=== PATIENT | male | born 1955 | race Caucasian/White ===

== ENCOUNTER → 2018-10-05 | Outpatient (CLI) | payer BC ==
--- NOTE | 2018-10-05 17:24 | CT ---
EXAM DESCRIPTION: Head w/Contrast: Computed Tomography. CLINICAL HISTORY: HEADACHE COMPARISON: None. TECHNIQUE: Spiral -axial scans through the head and brain at 2.5 x 20 mm intervals, without and with nonionic IV contrast coronal and sagittal 2.0 mm reconstructions, post contrast. No adverse reactions. Total Exam DLP: 1719.94 mGy-cm. This exam was performed according to our departmental CT dose-optimization program which includes automated exposure control, adjustment of the mA and/or kV according to patient size and/or use of iterative reconstruction technique; to reduce radiation dose to as low as reasonably achievable (ALARA). FINDINGS: No hemorrhage. No mass-effect and no midline shift. Normal contrast enhancement. Normal [place]-white matter differentiation. No abnormal radiodense objects in the brain parenchymaVascular calcifications anterior and posterior circulation; physiologic calcifications in the pineal gland and choroid plexus. No effacement or displacement of the ventricles, CSF spaces, or subdural spaces. Minimal atrophy of the cortical sulci. Normal contrast enhancement. No extra axial fluid collection or hemorrhage. No gross abnormalities of the bony calvarium. No unusual enhancement in the [place]. Minimal fluid in some of the inferior right mastoid air cells. Minimal mucoperiosteal thickening in the ethmoid air cells of the paranasal sinuses. IMPRESSION: 1. No hemorrhage. No mass effect or midline shift.. No abnormal contrast enhancement. Minimal cortical atrophy. No extra-axial hemorrhage. Minimal inflammatory changes in the right mastoid air cells. 2. CT scans are insensitive for detecting small CVA's in the first 24 hours after onset. Evaluation of the brain stem is also limited. If symptoms persist, consider MRI scan of the brain with diffusion imaging. Electronically signed by: Tristen Mar MD 10/05/2018 5:20 PM CDT
== END ==
LOC: CT 09:21
PROVIDERS: ATTEND Nurse Practitioner Family
DX: R51 Headache (principal)